=== PATIENT | male | born 1950 | race Caucasian/White ===

== ENCOUNTER 2016-08-25 15:19 | Outpatient (CLI) | payer BC, MEDICARE ==
[2016-08-25 16:47] LABS: ALT (SGPT) 15 U/L (0-55); AST (SGOT) 13 U/L (5-34); Alkaline Phosphatase 113 U/L (40-150); Anion Gap 17 mmol/L (10-20); BUN (Urea Nitrogen) 24 mg/dL (8.4-25.7); Bilirubin, Total 0.6 mg/dL (0.2-1.2); Calc. Creatinine Clearance 0 mL/min (70-130); Calcium 8.7 mg/dL (7.8-10.44); Carbon Dioxide 26 mmol/L (23-31); Chloride 98 mmol/L (98-107); Estimated GFR-MDRD 34; Globulin 3.2 g/dL (2.4-3.5); LDL Cholesterol, Calculated 83 mg/dL; Protein, Total 7.2 g/dL (5.8-8.1)
[2016-08-25 16:52] LABS: #Basophils 0.1 thou/uL (0.0-0.2); #Eosinphils 0.2 thou/uL (0.0-0.7); #Lymphocytes 2.3 thou/uL (1.20-3.40); #Monocytes 0.5 thou/uL (0.11-0.59); #Neutrophils 4.1 thou/uL (1.40-6.50); %Eosinophils 2.8 % (0.0-10.0); %Lymphocytes 32.7 % (21.0-51.0); %Monocytes 6.9 % (0.0-10.0); Hematocrit 33.5 % (42.0-52.0); Mean Platelet Volume 8.5 fL (7.4-10.4); Red Blood Cell (RBC) Count 3.65 mill/uL (4.70-6.10); White Blood Cell (WBC) Count 7.2 thou/uL (4.8-10.8)
[2016-08-25 17:03] LABS: Hemoglobin A1c 10.3 % (4.0-6.0)
[2016-08-25 22:06] LABS: Bilirubin Negative (Negative); Blood, Urine Negative (Negative); Glucose, Urine (Dipstick) >=1000 mg/dL (Negative); Ketone, Urine Negative (Negative); Nitrite Negative (Negative); Protein, Urine (Dipstick) Negative (Neg-Trace); Urobilinogen 0.2 mg/dL (0.2-1.0)
== END 2016-08-25 15:20 ==
LOC: NAVSJIPCSP 15:19
PROVIDERS: ATTEND Internal Medicine
DX: Z12.5 Encounter for screening for malignant neoplasm of prostate (principal); E78.5 Hyperlipidemia, unspecified; E11.22 Type 2 diabetes mellitus with diabetic chronic kidney disease; I12.9 Hypertensive chronic kidney disease with stage 1 through stage 4 chronic kidney disease, or unspecified chronic kidney disease; N18.2 Chronic kidney disease, stage 2 (mild); Z79.899 Other long term (current) drug therapy
CPT/HCPCS: 80053; 80061; 81003; 82043; 83036; 85025; G0103

== ENCOUNTER 2017-01-23 09:48 | Outpatient (CLI) | payer MEDICARE, OTHER ==
[2017-01-23 12:45] LABS: Hemoglobin A1c 11.8 % (4.0-6.0)
[2017-01-23 14:11] LABS: Cardiac Risk 6.1 (Less than 4.5)
== END 2017-01-23 09:49 | disposition home or self-care (01) ==
LOC: NAVSJIPCSP 09:48
PROVIDERS: ATTEND Internal Medicine
DX: E78.5 Hyperlipidemia, unspecified (principal); E11.29 Type 2 diabetes mellitus with other diabetic kidney complication
CPT/HCPCS: 36415; 80061; 83036

== ENCOUNTER 2018-05-31 18:52 | Emergency (ER) | payer OTHER ==
[2018-05-31 19:48] LABS: #Basophils 0.1 thou/uL (0.0-0.2); #Eosinphils 0.1 thou/uL (0.0-0.7); #Lymphocytes 2.2 thou/uL (1.20-3.40); #Monocytes 0.7 thou/uL (0.11-0.59); #Neutrophils 6.2 thou/uL (1.40-6.50); %Eosinophils 1.2 % (0.0-10.0); %Lymphocytes 23.4 % (21.0-51.0); %Monocytes 7.9 % (0.0-10.0); %Neutrophils 66.5 % (42.0-75.0); Hemoglobin 11.1 g/dL (14.0-18.0); Mean Corpuscular HGB CONC 32.9 g/dL (32.0-36.0); Mean Corpuscular Hemoglobin 30.6 pg (27.0-31.0); Mean Platelet Volume 7.9 fL (7.4-10.4); Platelet Count 219 thou/uL (130-400); RBC Distribution Width 12.5 % (11.5-14.5); Red Blood Cell (RBC) Count 3.61 mill/uL (4.70-6.10); White Blood Cell (WBC) Count 9.3 thou/uL (4.8-10.8)
[2018-05-31 19:53] LABS: ALT (SGPT) 17 U/L (8-55); AST (SGOT) 17 U/L (5-34); Albumin 4.2 g/dL (3.4-4.8); Alkaline Phosphatase 92 U/L (40-150); Anion Gap 17 mmol/L (10-20); BUN (Urea Nitrogen) 33 mg/dL (8.4-25.7); Bilirubin, Total 0.8 mg/dL (0.2-1.2); CK (CPK) 188 U/L (30-200); Calc. Creatinine Clearance 0 mL/min (70-130); Calcium 9.3 mg/dL (7.8-10.44); Carbon Dioxide 24 mmol/L (23-31); Chloride 109 mmol/L (98-107); Estimated GFR-MDRD 45; Globulin 2.8 g/dL (2.4-3.5); Glucose 249 mg/dL (80-115); Potassium 4.6 mmol/L (3.5-5.1); Sodium 145 mmol/L (136-145)
[2018-05-31 19:55] LABS: Bilirubin Small (Negative); Blood, Urine Trace (Negative); Glucose, Urine (Dipstick) 500 mg/dL (Negative); Leukocyte Negative (Negative); Nitrite Negative (Negative); Protein, Urine (Dipstick) 100 mg/dL (Neg-Trace); pH, Urine 5.5 (5.0-9.0)
[2018-05-31 20:00] LABS: Clarity SL HAZY (Clear)
[2018-05-31 20:02] LABS: RBC/HPF 0-3 HPF (0-3); Squamous Epithelial 0-3 HPF (0-3); WBC/HPF 0-3 HPF (0-3)
--- NOTE | 2018-05-31 21:01 | CT ---
CT BRAIN NONCONTRAST: 05/31/18 at 8:19 p.m. HISTORY: Syncope in 68-year-old male. FINDINGS: There is no midline shift or any other mass effect. There is no evidence of acute intracranial hemor rhage, large cortical infarct, obstructive hydrocephalus, or extraaxial fluid collection. The calvar ium is intact. There is diffuse chronic brain parenchymal volume loss. There is no major interval maribell nge compared to 07/23/15, except for mild progression of the parenchymal volume loss. IMPRESSION: 1. No acute intracranial findings. 2. Diffuse involutional changes of the brain. jn [] POS: JIN
== END 2018-05-31 23:16 | disposition short-term general hospital (02) ==
LOC: NAV ERS 18:52
DX: R41.82 Altered mental status, unspecified (principal); K21.9 Gastro-esophageal reflux disease without esophagitis; E11.9 Type 2 diabetes mellitus without complications; E78.00 Pure hypercholesterolemia, unspecified; I10 Essential (primary) hypertension; Z79.899 Other long term (current) drug therapy; Z79.82 Long term (current) use of aspirin
CPT/HCPCS: 36416; 70450; 80053; 81003; 81015; 82140; 82550; 84443; 84484; 85025; 93005; 36415-59

== ENCOUNTER 2018-07-04 06:58 | Outpatient (CLI) | payer BC, MEDICARE ==
--- NOTE | 2018-07-04 10:33 | ULT ---
RENAL ULTRASOUND: INDICATIONS: History of chronic renal disease. COMPARISON: None. TECHNIQUE: Zuniga-scale and color Doppler images were obtained of the kidneys and bladder. FINDINGS: The right kidney measures 12.7 x 5.4 x 6.0 cm. The right renal cortical thickness is 1.4 cm. No hyd ronephrosis is evident. No solid renal lesion is demonstrated. The left kidney measures 12.5 x 5.6 x 4.8 cm. The left renal cortical thickness is, on average, appr oximately 1.4 to 1.7 cm. No focal renal lesion or hydronephrosis is evident. The visualized bladder appears within normal limits and is partially decompressed. Pre-void bladder volume is measured at 53 mL. IMPRESSION: No focal renal lesion or hydronephrosis. POS: DENISE
[2018-07-04 12:12] LABS: Anion Gap 16 mmol/L (10-20); BUN (Urea Nitrogen) 28 mg/dL (8.4-25.7); Calc. Creatinine Clearance 0 mL/min (70-130); Calcium 8.7 mg/dL (7.8-10.44); Carbon Dioxide 24 mmol/L (23-31); Chloride 99 mmol/L (98-107); Estimated GFR-MDRD 32; Glucose 372 mg/dL (80-115); Potassium 5.7 mmol/L (3.5-5.1); Sodium 133 mmol/L (136-145)
[2018-07-04 12:31] LABS: Creatinine, Urine 62.68 mg/dL (63-166); Protein, Urine Random Quant Less than 10 mg/dL (1-14)
[2018-07-04 13:01] LABS: Follow-up Chemistry Comp? YES; Follow-up Result - Chemistry REPORT FAXED
== END 2018-07-04 06:59 | disposition home or self-care (01) ==
LOC: NAV ULT 06:58
PROVIDERS: ATTEND Internal Medicine Nephrology
DX: N18.3 Chronic kidney disease, stage 3 (moderate) (principal)
CPT/HCPCS: 36415; 76770; 80048; 82570; 84156

== ENCOUNTER 2020-07-25 11:54 | Inpatient (IN) | payer BC, MEDICARE ==
[2020-07-25 12:48] LABS: #Basophils 0.1 thou/uL (0.0-0.2); #Lymphocytes 2.5 thou/uL (1.20-3.40); #Monocytes 0.5 thou/uL (0.11-0.59); #Neutrophils 7.2 thou/uL (1.40-6.50); %Basophils 0.6 % (0.0-1.0); %Eosinophils 0.2 % (0.0-10.0); %Monocytes 5.2 % (0.0-10.0); %Neutrophils 70.1 % (42.0-75.0); Hemoglobin 12.5 g/dL (14.0-18.0); Mean Corpuscular HGB CONC 31.7 g/dL (32.0-36.0); Mean Corpuscular Volume 94.6 fL (78.0-98.0); Mean Platelet Volume 7.9 fL (7.4-10.4); Platelet Count 166 thou/uL (130-400); RBC Distribution Width 13.1 % (11.5-14.5); Red Blood Cell (RBC) Count 4.17 mill/uL (4.70-6.10); White Blood Cell (WBC) Count 10.2 thou/uL (4.8-10.8)
[2020-07-25 12:52] LABS: ALT (SGPT) 18 U/L (8-55); AST (SGOT) 18 U/L (5-34); Albumin 4.3 g/dL (3.4-4.8); Alcohol Less than 10 mg/dL (Less than 10); Alkaline Phosphatase 109 U/L (40-110); Anion Gap 20 mmol/L (10-20); BUN (Urea Nitrogen) 38 mg/dL (8.4-25.7); Bilirubin, Total 0.9 mg/dL (0.2-1.2); Calc. Creatinine Clearance 0 mL/min (70-130); Calcium 9.2 mg/dL (7.8-10.44); Carbon Dioxide 22 mmol/L (23-31); Chloride 103 mmol/L (98-107); Globulin 3.3 g/dL (2.4-3.5); Glucose 235 mg/dL (83-110); Potassium 4.6 mmol/L (3.5-5.1); Protein, Total 7.6 g/dL (5.8-8.1)
--- NOTE | 2020-07-25 12:56 | CT ---
EXAM: Brain CTWithout contrast: HISTORY: Altered mental status COMPARISON: 05/31/2018 FINDINGS: Stable atrophy and chronic white matter ischemic change. No focal mass or midline shift. No intra or extra-axial hemorrhage. Sinuses and mastoids are clear of acute process. IMPRESSION: No mass or bleed or other significant acute intracranial process.
--- NOTE | 2020-07-25 12:59 | RAD ---
EXAM: Chest one view: HISTORY: Altered mental status COMPARISON: 08/27/2016 FINDINGS: Postop midline sternotomy and coronary artery bypass changes, stable Heart size: Within normal limits. Lungs: Clear of acute process. No evidence for confluent lobar pneumonia, significant pleural effusion, acute edema, or pneumothorax , or other significant acute process. IMPRESSION: No significant acute intrathoracic disease.
[2020-07-25 13:04] LABS: Lipase 15 U/L (8-78); Sodium 140 mmol/L (136-145)
[2020-07-25 13:08] LABS: Bilirubin Small (Negative); Blood, Urine Negative (Negative); Clarity Clear (Clear); Glucose, Urine (Dipstick) 100 mg/dL (Negative); Ketone, Urine 15 mg/dL (Negative); Leukocyte Negative (Negative); Nitrite Negative (Negative); Protein, Urine (Dipstick) Negative (Neg-Trace); Specific Gravity, Urine 1.025 (1.005-1.030); Urobilinogen 0.2 mg/dL (Less than 2)
[2020-07-25 13:21] LABS: Amphetamine Not Detected (NotDetected); Benzodiazepine Screen Not Detected (NotDetected); Cocaine Metabolite Screen Not Detected (NotDetected); Methamphetamine Not Detected (NotDetected); Opiate Screen Not Detected (NotDetected); Phencyclidine (PCP) Not Detected (NotDetected); THC/Cannabinoid Screen Not Detected (NotDetected)
[2020-07-25 13:22] LABS: Barbiturates Screen Not Detected (NotDetected); Medtox Control Line Valid? VALID (VALID); Methadone Not Detected (NotDetected); Oxycodone Screen Not Detected (NotDetected); Tricyclic Screen Not Detected (NotDetected)
[2020-07-25] MEDS ORDERED: Sodium Chloride 0.9% 2,000 ML ONE (13:36)
[2020-07-25] MEDS ORDERED: Cefepime 2 GM VIAL ONE (13:36)
[2020-07-25] MEDS ORDERED: Sodium Chloride 0.9% 100 ML ONE (13:36)
[2020-07-25] MEDS ORDERED: Sodium Chloride 0.9% 500 ML ONE (14:10)
[2020-07-25 14:49] LABS: SARS-CoV-2 NAA Rapid Test Not Detected (NotDetected)
[2020-07-25] MEDS ORDERED: Glimepiride 2 MG TAB PO SCH (16:30)
[2020-07-25] MEDS ORDERED: Insulin Regular 300 UNITS/3 ML VIAL SC PRN (17:59)
[2020-07-25] MEDS ORDERED: Dextrose 50% Abboject 50 ML SYRINGE SLOW IVP PRN (17:59)
[2020-07-25] MEDS: Sodium Chloride 0.9% 1,000 ML IV SCH (18:10)
[2020-07-25] MEDS ORDERED: Metoprolol Tartrate 25 MG TAB PO SCH ×2 (21:00)
[2020-07-25] MEDS ORDERED: HumuLIN 70/30 (300 UNITS/3 ML VIAL) SC SCH (21:00)
[2020-07-25] MEDS: Cefepime 2 GM in Sodium Chloride 0.9% 100 ML IVPB SCH (21:00)
[2020-07-25] MEDS ORDERED: Atorvastatin Calcium 40 MG TAB PO SCH ×2 (21:00)
[2020-07-26 05:15] LABS: #Basophils 0.1 thou/uL (0.0-0.2); #Eosinphils 0.1 thou/uL (0.0-0.7); #Lymphocytes 2.9 thou/uL (1.20-3.40); #Monocytes 0.8 thou/uL (0.11-0.59); #Neutrophils 5.3 thou/uL (1.40-6.50); %Basophils 0.8 % (0.0-1.0); %Eosinophils 1.2 % (0.0-10.0); %Lymphocytes 31.4 % (21.0-51.0); %Monocytes 9.1 % (0.0-10.0); %Neutrophils 57.4 % (42.0-75.0); Hemoglobin 10.8 g/dL (14.0-18.0); Manual Diff?? NO; Mean Corpuscular HGB CONC 33.6 g/dL (32.0-36.0); Mean Corpuscular Hemoglobin 30.9 pg (27.0-31.0); Mean Corpuscular Volume 91.9 fL (78.0-98.0); Mean Platelet Volume 8.2 fL (7.4-10.4); Platelet Count 161 thou/uL (130-400); RBC Distribution Width 12.9 % (11.5-14.5); White Blood Cell (WBC) Count 9.2 thou/uL (4.8-10.8)
[2020-07-26 05:16] LABS: Lactic Acid 1.2 mmol/L (0.5-2.2)
[2020-07-26] MEDS: Cefepime 2 GM in Sodium Chloride 0.9% 100 ML IVPB SCH ×3 (05:19→21:16)
[2020-07-26 05:23] LABS: ALT (SGPT) 14 U/L (8-55); AST (SGOT) 18 U/L (5-34); Albumin 3.6 g/dL (3.4-4.8); Alkaline Phosphatase 83 U/L (40-110); Anion Gap 14 mmol/L (10-20); BUN (Urea Nitrogen) 27 mg/dL (8.4-25.7); Bilirubin, Total 0.7 mg/dL (0.2-1.2); Calc. Creatinine Clearance 67 mL/min (70-130); Calcium 8.2 mg/dL (7.8-10.44); Carbon Dioxide 21 mmol/L (23-31); Chloride 109 mmol/L (98-107); Globulin 2.5 g/dL (2.4-3.5); Glucose 82 mg/dL (83-110); Potassium 4.1 mmol/L (3.5-5.1); Protein, Total 6.1 g/dL (5.8-8.1); Sodium 140 mmol/L (136-145)
[2020-07-26] MEDS ORDERED: Glimepiride 2 MG TAB PO SCH (07:30)
[2020-07-26] MEDS ORDERED: Spironolactone 25 MG TAB PO SCH (08:00)
--- NOTE | 2020-07-26 08:12 | HP ---
Patient of Dr. Jessica Lyons. HISTORY OF PRESENT ILLNESS: The patient is a 70-year-old male, brought into the emergency room by his because of altered mental status and weakness. Apparently, he has a history of diabetes and hypertension, but had do well until the last several days when he has become very weak and also has been slightly confused, not answering the 's questions appropriately. He was evaluated in the emergency room and found to be dehydrated with decreased GFR and elevated BUN. He was also found to have a slightly elevated lactate. His urinalysis was normal as was his chest x-ray, but because of his metabolic encephalopathy, elevated lactate, and risk factors of diabetes and hypertension, it is felt to be admitted to the hospital for sepsis workup. He had blood cultures done and was started on broad-spectrum coverage with vancomycin and cefepime. The patient does appear to be improving somewhat, somewhat described in the emergency room, but is still somewhat weak and confused here in the hospital. He denies any fever, chills, shortness of breath, cough, nausea, vomiting, diarrhea, or dysuria. He, however, is eating in the hospital. PAST MEDICAL HISTORY: As mentioned above, is positive for diabetes, hyperlipidemia, and hypertension. Medical history also was positive for coronary artery disease. PAST SURGICAL HISTORY: Positive for appendectomy, tonsillectomy, adenoidectomy, coronary artery bypass graft. REVIEW OF SYSTEMS: HEENT: He denies any headaches, dizziness, change in vision or hearing. Complains of just diffuse weakness. PULMONARY: Denies cough, sputum production, pneumonia, asthma, or tuberculosis. CARDIOVASCULAR: Denies chest pain, orthopnea, paroxysmal nocturnal dyspnea, or edema. GASTROINTESTINAL: Denies nausea, vomiting, diarrhea, constipation, or abdominal pain. GENITOURINARY: Denies dysuria, hematuria, or nocturia. MUSCULOSKELETAL: Complains of diffuse weakness, but no back pain or joint pain. NEUROLOGIC: Denies localized numbness or tingling in the arms or extremities, but diffuse weakness. PHYSICAL EXAMINATION: VITAL SIGNS: Blood pressure 169/73, pulse is 80, respirations 15, O2 saturation 97% on room air. He is afebrile. HEENT: Pupils are equal, round, and reactive to light and accommodation. Sclerae anicteric. Conjunctivae pale. Oral mucous membranes well hydrated. NECK: Supple. There are no nodes or masses. JVP is not elevated. LUNGS: Clear. CARDIAC: Shows regular rhythm. No gallops or murmurs. ABDOMEN: Soft and nontender with no masses or organomegaly. SKIN/EXTREMITIES: Display no edema, clubbing, or cyanosis. NEUROLOGIC: Cranial nerves 2 through 12 are intact. Deep tendon reflex 2+ and equal. Absent Babinski. The patient, however, is only oriented to person and place. LABORATORY EVALUATIONS: EKG shows normal sinus rhythm, no ST changes. Laboratory shows white count 10,200, hematocrit 39, hemoglobin 12. Sodium 140, potassium 4.6, chloride 103, bicarb 22, BUN 38, creatinine 1.97, glucose 235. Lactic acid 2.3. TSH 0.925. Liver functions normal. Troponin less than 0.01. Urinalysis within normal limits. Drug screen normal. COVID, influenza swab normal. ASSESSMENT: A 70-year-old white male history of hypertension, diabetes, coronary artery disease, presents with mild confusion, altered mental status and weakness. He is found to have dehydration with increased creatinine and also with increased lactic acid. There is no source of infection, but he has been admitted to the hospital after blood cultures for IV fluids and broad-spectrum antibiotics, pending results of his cultures and his mental status and his renal status after IV fluids. PLAN: 1. IV vancomycin and cefepime. 2. Normal saline 75 mL an hour. 3. Repeat CBC and basic metabolic profile in the a.m. 4. Await blood cultures. 5. Continue sliding scale until the patient is able to eat better and then started back on prehospitalization medications. Job ID: [id number]
[2020-07-26] MEDS: Spironolactone 25 MG TAB PO SCH (08:35)
[2020-07-26] MEDS: Sodium Chloride 0.9% 1,000 ML IV SCH ×2 (08:35→21:17)
[2020-07-26] MEDS ORDERED: HumuLIN 70/30 (300 UNITS/3 ML VIAL) SC SCH (09:00)
[2020-07-26] MEDS ORDERED: Furosemide 40 MG TAB PO SCH (09:00)
[2020-07-26] MEDS ORDERED: Vancomycin HCl 750 MG in Sodium Chloride 0.9% 250 ML 250 ML IVPB SCH ×2 (14:00→16:00)
[2020-07-26] MEDS ORDERED: Vancomycin HCl 500 MG in Sodium Chloride 0.9% 100 ML IVPB SCH ×2 (15:00→17:00)
[2020-07-27 04:57] VITALS: BMI 33.0
[2020-07-27] MEDS: Cefepime 2 GM in Sodium Chloride 0.9% 100 ML IVPB SCH (05:05)
[2020-07-27] MEDS: Spironolactone 25 MG TAB PO SCH (09:58)
[2020-07-27] MEDS ORDERED: Ondansetron PF 4 MG/2 ML Vial IVP PRN (11:57)
--- NOTE | 2020-07-27 13:26 | PRG ---
DATE OF SERVICE: 07/27/2020 SUBJECTIVE: Mr. Arteaga is up in bed. He denies any complaints. He is confused and not oriented to time or place. He states that he recognizes me as his doctor, but does not remember my name. He is apparently eating and drinking more. No signs of infection. OBJECTIVE: VITAL SIGNS: He is afebrile. Heart rate 69, respirations 16, oxygen saturation 98% on room air, blood pressure 172/76. CARDIOVASCULAR SYSTEM: S1, S2 plus. RESPIRATORY SYSTEM: Normal vesicular breath sounds. ABDOMEN: Soft, nontender. Bowel sounds heard in all quadrants. EXTREMITIES: Without cyanosis, clubbing. Trace edema. CENTRAL NERVOUS SYSTEM: Awake and responsive, not oriented to time. He thinks this is 2004 and unable to remember my name. Cranial nerves 2 through 12 intact. Generalized weakness, otherwise, nonfocal. LABORATORY DATA: Sodium 140, potassium 4.1, BUN and creatinine is 27 and 1.4 this is from yesterday. No labs were done today and I ordered some labs. Blood sugars are 131, 126, 88 and 115. Lactic acid was normal yesterday at 1.2. White count is 9.2, hemoglobin and hematocrit are 10.8 and 32.2. Urinalysis was unremarkable. Tox screen was negative. SARS-CoV2 and influenza were negative. IMAGING STUDIES: Brain CT without contrast does not show any acute changes. IMPRESSION: 1. Altered mental status. 2. Dehydration, possibly improving. 3. Diabetes mellitus type 2. 4. Hypertension. 5. Dyslipidemia. 6. Coronary artery disease. PLAN: 1. Continue current medications but discontinue IV antibiotics. 2. Continue IV fluids. 3. Resume home medications, but hold his long-acting insulin. I am not sure how much he is eating. 4. Continue sliding scale coverage. 5. I left his a call to find out what might have happened at home. He may need to get an MRI and neurological workup as outpatient for possible presenile dementia. We will order a TSH and B12 level while he is here. We will also get him out of bed. Routine labs in the morning. Discussed with the patient and nursing. Job ID: [id number]
[2020-07-27] MEDS: Sodium Chloride 0.9% 1,000 ML IV SCH (14:46)
[2020-07-27] MEDS: Glimepiride 2 MG TAB PO SCH (17:28)
[2020-07-27] MEDS ORDERED: HumuLIN 70/30 (300 UNITS/3 ML VIAL) SC SCH (21:00)
[2020-07-27] MEDS: Metoprolol Tartrate 25 MG TAB PO SCH (21:03)
[2020-07-27] MEDS: Atorvastatin Calcium 40 MG TAB PO SCH (21:03)
[2020-07-28] MEDS: Sodium Chloride 0.9% 1,000 ML IV SCH ×2 (01:50→14:23)
[2020-07-28 05:31] LABS: Hemoglobin 11.6 g/dL (14.0-18.0); Mean Corpuscular Volume 92.5 fL (78.0-98.0); Red Blood Cell (RBC) Count 3.84 mill/uL (4.70-6.10); White Blood Cell (WBC) Count 8.9 thou/uL (4.8-10.8)
[2020-07-28 05:32] LABS: #Basophils 0.1 thou/uL (0.0-0.2); #Eosinphils 0.2 thou/uL (0.0-0.7); #Lymphocytes 2.5 thou/uL (1.20-3.40); #Monocytes 0.8 thou/uL (0.11-0.59); #Neutrophils 5.3 thou/uL (1.40-6.50); %Basophils 1.2 % (0.0-1.0); %Eosinophils 2.3 % (0.0-10.0); %Lymphocytes 28.6 % (21.0-51.0); %Monocytes 8.5 % (0.0-10.0); %Neutrophils 59.5 % (42.0-75.0); Manual Diff?? NO; Mean Corpuscular HGB CONC 32.6 g/dL (32.0-36.0); Mean Corpuscular Hemoglobin 30.2 pg (27.0-31.0); Mean Platelet Volume 7.5 fL (7.4-10.4); Platelet Count 160 thou/uL (130-400); RBC Distribution Width 12.8 % (11.5-14.5)
[2020-07-28 05:38] LABS: Sodium 140 mmol/L (136-145)
[2020-07-28 05:39] LABS: Anion Gap 13 mmol/L (10-20); BUN (Urea Nitrogen) 20 mg/dL (8.4-25.7); Calc. Creatinine Clearance 85 mL/min (70-130); Calcium 8.3 mg/dL (7.8-10.44); Carbon Dioxide 21 mmol/L (23-31); Chloride 110 mmol/L (98-107); Glucose 78 mg/dL (83-110); Potassium 3.8 mmol/L (3.5-5.1)
[2020-07-28] MEDS: Glimepiride 2 MG TAB PO SCH ×2 (08:17→17:36)
[2020-07-28] MEDS: Metoprolol Tartrate 25 MG TAB PO SCH ×2 (08:19→21:33)
[2020-07-28] MEDS: Spironolactone 25 MG TAB PO SCH (08:19)
[2020-07-28] MEDS ORDERED: Furosemide 40 MG TAB PO SCH (09:00)
[2020-07-28] MEDS ORDERED: HumuLIN 70/30 (300 UNITS/3 ML VIAL) SC SCH (09:00)
--- NOTE | 2020-07-28 13:24 | PRG ---
DATE OF SERVICE: 07/28/2020 SUBJECTIVE: Mr. Arteaga is much more awake and alert. He is back to his baseline. He is able to recognize me by name. He is also oriented to time, place, and person. He was evaluated by Therapy this morning and he apparently was taken to the gym. He apparently also walked outside as well as did some stairs. We will check with them and see when he will be ready for discharge. OBJECTIVE: VITAL SIGNS: Today, he is afebrile, heart rate is 69, respirations 16, oxygen saturation 96% on room air, and blood pressure 150/72. CARDIOVASCULAR SYSTEM: S1 and S2 plus. RESPIRATORY SYSTEM: Normal vesicular breath sounds. ABDOMEN: Soft and nontender. Bowel sounds heard in all quadrants. EXTREMITIES: Without cyanosis or clubbing. CENTRAL NERVOUS SYSTEM: Much improved cognition, back to his baseline, and improving deconditioning. LABORATORY VALUES: Sodium 140, potassium 3.8, and BUN and creatinine are 20 and 1.10. Blood sugars are 121, 110, 93, and 137. B12 was slightly low at 271. TSH was normal at 1.0805. B12 was low normal. White count is 8.9 and hemoglobin and hematocrit are 11.6 and 35.5. IMPRESSION: 1. Resolved altered mental status. 2. No evidence for infection. 3. Resolved dehydration. 4. Coronary artery disease. 5. Diabetes mellitus, type 2. 6. Hypertension. 7. Dyslipidemia. 8. Chronic kidney disease, 2. PLAN: 1. Stop IV fluids. 2. 1800-calorie, heart healthy, ADA diet. 3. Continue to hold off on his 70/30 insulin. 4. PT/OT evaluate and treat. 5. Discharge planning. 6. Discussed with the patient and nursing in detail and all questions answered. I also spoke with his over the phone. Job ID: [id number]
[2020-07-28] MEDS: Atorvastatin Calcium 40 MG TAB PO SCH (21:33)
[2020-07-29] MEDS: Spironolactone 25 MG TAB PO SCH (08:24)
[2020-07-29] MEDS: Metoprolol Tartrate 25 MG TAB PO SCH (08:24)
[2020-07-29] MEDS: Glimepiride 2 MG TAB PO SCH (08:24)
[2020-07-29 09:25] VITALS: TEMP 98.1
[2020-07-29 13:00] VITALS: BP 148/79
--- NOTE | 2020-07-30 00:16 | DIS ---
DATE OF ADMISSION: 07/25/2020 DATE OF DISCHARGE: 07/29/2020 PRINCIPAL DIAGNOSES: 1. Altered mental status, which resolved. 2. Dehydration, which has resolved. 3. Diabetes mellitus type 2. 4. Hypertension. 5. Dyslipidemia. 6. Coronary artery disease. 7. Diabetic peripheral neuropathy. COMPLICATIONS: None. ADVERSE REACTIONS: None. PROCEDURES: None. CONSULTATIONS: None. HOSPITAL COURSE: The patient was admitted with altered mental status and weakness. He apparently was somnolent and not eating or drinking well. He was evaluated in the ER and was diagnosed with mildly elevated lactic acid level and elevated creatinine, and was felt to be septic. He was admitted to the hospital for further evaluation and management. He was started on IV fluids and empiric IV antibiotics with vancomycin and cefepime. When I saw him the next day, his cultures remain negative. White count was normal. No evidence for any infection. Lactic acid level was back to normal, and so I stopped all his antibiotics. I did continue his IV fluids. He did remain confused. The day after, he was pretty much back to his baseline. He was able to recognize me, was oriented to time, place, and person, and so I consulted Physical Therapy and had some work with them. Discontinued his IV fluids as well. He actually has been pretty much independent while in the hospital since yesterday. He has been ambulating without any certified dental assistant. He is eating better and he was deemed stable for discharge to home. He is going to be discharged home on his current medications except I told his to cut his 70/30 insulin dose in half tonight and then slowly increase it to his usual dosage as he has been off the insulin for the last few days. He also apparently is on pregabalin at home, which he has not picked up and I advised his that it is okay for him to resume his pregabalin. PHYSICAL EXAMINATION: VITAL SIGNS: On the day of discharge, he is afebrile. Heart rate 68, respirations 18, oxygen saturation 96% on room air, blood pressure 157/67. CARDIOVASCULAR SYSTEM: S1, S2 plus. RESPIRATORY SYSTEM: Normal vesicular breath sounds. ABDOMEN: Soft, nontender. Bowel sounds heard in all quadrants. EXTREMITIES: Without cyanosis or clubbing. CENTRAL NERVOUS SYSTEM: Awake and responsive. Cranial nerves 2 through 12 intact. Generalized weakness. Otherwise, nonfocal. DISCHARGE MEDICATIONS: 1. Lipitor 80 mg daily. 2. Amaryl 4 mg b.i.d. 3. Aldactone 25 mg daily. 4. Lasix 40 mg daily. 5. 70/30 insulin, start out at 15 units twice a day and then slowly increase it by 5 units every three days to his baseline dose of 25 units in the morning and 30 in the evening. 6. Metoprolol 25 mg b.i.d. 7. Prilosec 40 mg daily. DISCHARGE INSTRUCTIONS: 1800 calorie heart-healthy ADA diet. Activity as tolerated. He is to follow up in my office in two weeks time. He is to call us with any questions or concerns. He does not need any refills. TIME SPENT: Total time spent on this discharge 25 minutes. Job ID: [id number]
== END 2020-07-29 14:20 | disposition home or self-care (01) | DRG 948 ==
LOC: NAV ERS 11:54 → NAV ACUTE 15:01
PROVIDERS: ADMIT Internal Medicine; ATTEND Internal Medicine
DX: R41.82 Altered mental status, unspecified (principal); E78.5 Hyperlipidemia, unspecified; E86.0 Dehydration; I25.10 Atherosclerotic heart disease of native coronary artery without angina pectoris; Z20.822 Contact with and (suspected) exposure to COVID-19; N18.2 Chronic kidney disease, stage 2 (mild); E11.22 Type 2 diabetes mellitus with diabetic chronic kidney disease; E11.42 Type 2 diabetes mellitus with diabetic polyneuropathy; I12.9 Hypertensive chronic kidney disease with stage 1 through stage 4 chronic kidney disease, or unspecified chronic kidney disease; Z90.49 Acquired absence of other specified parts of digestive tract; Z95.1 Presence of aortocoronary bypass graft
CPT/HCPCS: 0240U; 36416; 70450; 71045; 80048; 80053; 80306; 80307; 81003; 82607; 83605; 83690; 84443; 84484; 85025; 87040; 93005; J0692; J3370; J3490; J7030; J7050

== ENCOUNTER 2020-12-08 21:43 | Emergency (ER) | payer BC, MEDICARE ==
[2020-12-08] MEDS ORDERED: Acetaminophen 500 MG TAB ONE (21:54)
[2020-12-08] MEDS ORDERED: Ibuprofen 200 MG TAB ONE (22:24)
[2020-12-08 22:52] LABS: ALT (SGPT) 15 U/L (8-55); AST (SGOT) 15 U/L (5-34); Albumin 3.9 g/dL (3.4-4.8); Alkaline Phosphatase 96 U/L (40-110); Anion Gap 18 mmol/L (10-20); BUN (Urea Nitrogen) 28 mg/dL (8.4-25.7); Bilirubin, Total 0.7 mg/dL (0.2-1.2); Calc. Creatinine Clearance 0 mL/min (70-130); Carbon Dioxide 17 mmol/L (23-31); Chloride 105 mmol/L (98-107); Globulin 2.9 g/dL (2.4-3.5); Glucose 153 mg/dL (83-110); Potassium 5.5 mmol/L (3.5-5.1); Protein, Total 6.8 g/dL (5.8-8.1); Sodium 134 mmol/L (136-145)
[2020-12-08 22:58] LABS: Hemoglobin 11.6 g/dL (14.0-18.0); Mean Corpuscular Hemoglobin 30.1 pg (27.0-31.0); Platelet Count 53 thou/uL (130-400); Red Blood Cell (RBC) Count 3.85 mill/uL (4.70-6.10); White Blood Cell (WBC) Count 13.9 thou/uL (4.8-10.8)
[2020-12-08 23:02] LABS: #Basophils 0.2 thou/uL (0.0-0.2); #Eosinphils 0.1 thou/uL (0.0-0.7); #Lymphocytes 1.3 thou/uL (1.20-3.40); #Monocytes 0.8 thou/uL (0.11-0.59); #Neutrophils 11.6 thou/uL (1.40-6.50); %Basophils 1.3 % (0.0-1.0); %Eosinophils 0.4 % (0.0-10.0); %Lymphocytes 9.4 % (21.0-51.0); %Monocytes 5.4 % (0.0-10.0); %Neutrophils 83.5 % (42.0-75.0); Anisocytosis SLIGHT = 6-15 cells (100X) (0-5/hpf); MDiff Complete? YES; Ovalocytes SLIGHT = 2-5 cells (100X) (0-1/hpf); Platelet Morphology Comment Appears Decreased
[2020-12-08 23:49] LABS: SARS-CoV-2 NAA Rapid Test Not Detected (NotDetected)
[2020-12-09 00:01] LABS: Bilirubin Negative (Negative); Blood, Urine Negative (Negative); Clarity Clear (Clear); Glucose, Urine (Dipstick) Negative (Negative); Ketone, Urine Negative (Negative); Leukocyte Negative (Negative); Nitrite Negative (Negative); Protein, Urine (Dipstick) Negative (Neg-Trace); Urobilinogen 0.2 mg/dL (Less than 2); pH, Urine 5.5 (5.0-9.0)
== END 2020-12-09 00:55 | disposition home or self-care (01) ==
LOC: NAV ERS 21:43
DX: B34.9 Viral infection, unspecified (principal); Z20.822 Contact with and (suspected) exposure to COVID-19; E11.9 Type 2 diabetes mellitus without complications; E78.00 Pure hypercholesterolemia, unspecified; I10 Essential (primary) hypertension; Z79.84 Long term (current) use of oral hypoglycemic drugs; Z79.899 Other long term (current) drug therapy
CPT/HCPCS: 0240U; 71046; 74176; 80053; 81003; 85025

== ENCOUNTER 2021-11-10 09:51 | Outpatient (CLI) | payer BC, OTHER ==
[2021-11-10 10:45] LABS: Anion Gap 19 mmol/L (10-20); BUN (Urea Nitrogen) 33 mg/dL (8.4-25.7); Calc. Creatinine Clearance 0 mL/min (70-130); Calcium 9.3 mg/dL (7.8-10.44); Carbon Dioxide 20 mmol/L (23-31); Chloride 102 mmol/L (98-107); Glucose 274 mg/dL (83-110); Potassium 5.9 mmol/L (3.5-5.1); Sodium 135 mmol/L (136-145)
== END 2021-11-10 09:52 | disposition home or self-care (01) ==
LOC: NAV LAB 09:51
PROVIDERS: ATTEND Family Medicine
DX: E87.5 Hyperkalemia (principal)
CPT/HCPCS: 36415

== ENCOUNTER 2022-05-30 22:00 | Emergency (ER) | payer OTHER ==
[~2022-05-30 22:00] MED LIST: Lantus 1000 UNITS/10 ML VIAL ONE
[2022-05-30] MEDS ORDERED: Acetaminophen 650 MG Suppository ONE (22:30)
[2022-05-30] MEDS ORDERED: Sodium Chloride 0.9% 1,000 ML ONE (22:30)
[2022-05-30] MEDS ORDERED: Ondansetron PF 4 MG/2 ML Vial ONE (22:30)
[2022-05-30 22:34] LABS: #Basophils 0.1 thou/uL (0.0-0.2); #Lymphocytes 2.1 thou/uL (1.20-3.40); #Monocytes 0.5 thou/uL (0.11-0.59); #Neutrophils 11.7 thou/uL (1.40-6.50); %Basophils 0.4 % (0.0-1.0); %Eosinophils 0.1 % (0.0-10.0); %Lymphocytes 14.7 % (21.0-51.0); %Monocytes 3.5 % (0.0-10.0); %Neutrophils 81.2 % (42.0-75.0); Hemoglobin 11.8 g/dL (14.0-18.0); Mean Platelet Volume 8.2 fL (7.4-10.4); Platelet Count 169 10x3/uL (130-400); RBC Distribution Width 14.3 % (11.5-14.5); Red Blood Cell (RBC) Count 3.81 mill/uL (4.70-6.10); White Blood Cell (WBC) Count 14.4 10x3/uL (4.8-10.8)
[2022-05-30] MEDS ORDERED: Cefepime 2 GM VIAL ONE ×2 (22:47→22:49)
[2022-05-30] MEDS ORDERED: Sodium Chloride 0.9% 100 ML ONE (22:47)
[2022-05-30 22:49] LABS: ALT (SGPT) 23 U/L (8-55); AST (SGOT) 20 U/L (5-34); Albumin 3.9 g/dL (3.4-4.8); Alkaline Phosphatase 93 U/L (40-110); Anion Gap 14 mmol/L (10-20); BUN (Urea Nitrogen) 27 mg/dL (8.4-25.7); Bilirubin, Total 0.7 mg/dL (0.2-1.2); Calc. Creatinine Clearance 0 mL/min (70-130); Calcium 8.8 mg/dL (7.8-10.44); Carbon Dioxide 20 mmol/L (23-31); Chloride 103 mmol/L (98-107); Estimated GFR 41; Globulin 2.7 g/dL (2.4-3.5); Glucose 371 mg/dL (83-110); Potassium 5.1 mmol/L (3.5-5.1); Protein, Total 6.6 g/dL (5.8-8.1); Sodium 132 mmol/L (136-145)
[2022-05-30 23:38] LABS: SARS-CoV-2 NAA Rapid Test Not Detected (NotDetected)
[2022-05-31] MEDS ORDERED: Vancomycin HCl 750 MG VIAL ONE (00:48)
[2022-05-31] MEDS ORDERED: Sodium Chloride 0.9% 500 ML ONE (00:48)
[2022-05-31] MEDS ORDERED: Vancomycin 1 GM VIAL ONE (00:48)
[2022-05-31] MEDS ORDERED: Sodium Chloride 0.9% 1,000 ML ONE ×2 (00:48→02:17)
[2022-05-31 01:27] LABS: Lactic Acid 2.6 mmol/L (0.5-2.2)
[2022-05-31] MEDS ORDERED: Acetaminophen 325 MG TAB ONE ×2 (03:10→17:16)
[2022-05-31] MEDS ORDERED: Lactated Ringer's 1,000 ML ONE (04:21)
[2022-05-31 05:30] LABS: Bilirubin Negative (Negative); Blood, Urine Negative (Negative); Clarity Clear (Clear); Glucose, Urine (Dipstick) 500 mg/dL (Negative); Ketone, Urine 15 mg/dL (Negative); Leukocyte Negative (Negative); Nitrite Negative (Negative); Protein, Urine (Dipstick) Trace mg/dL (Neg-Trace); Urobilinogen 0.2 mg/dL (Less than 2); pH, Urine 5.5 (5.0-9.0)
[2022-05-31] MEDS ORDERED: Sodium Chloride 0.9% 0 ML ONE (06:09)
[2022-05-31] MEDS ORDERED: Cefepime 2 GM VIAL ONE ×2 (06:09→17:14)
[2022-05-31] MEDS ORDERED: Cefepime 1 GM VIAL ONE (06:27)
[2022-05-31] MEDS ORDERED: Sodium Chloride 0.9% 100 ML ONE ×2 (06:28→17:14)
[2022-05-31] MEDS ORDERED: Glimepiride 2 MG TAB PO SCH (10:15)
[2022-05-31] MEDS ORDERED: Aspirin Chewable 81 MG TAB ONE ×2 (10:30→14:54)
[2022-05-31] MEDS ORDERED: Furosemide 40 MG TAB ONE (10:30)
[2022-05-31] MEDS ORDERED: Metoprolol Tartrate 25 MG TAB ONE (10:30)
[2022-05-31] MEDS ORDERED: Insulin Regular 300 UNITS/3 ML VIAL ONE (10:36)
[2022-05-31] MEDS ORDERED: Spironolactone 25 MG TAB PO SCH (10:45)
[2022-05-31] MEDS ORDERED: Atorvastatin Calcium 40 MG TAB PO SCH (10:45)
[2022-05-31] MEDS ORDERED: Pregabalin 75 MG CAP PO SCH (10:45)
[2022-05-31 13:26] LABS: CKMB 2.6 ng/mL (0-6.6)
[2022-05-31 15:36] LABS: PTT 32.7 sec (22.9-36.1)
[2022-05-31] MEDS ORDERED: Heparin 5,000 UNITS/ML VIAL ONE (16:22)
[2022-05-31] MEDS ORDERED: Heparin 25,000 units/D5W 500 ML ONE (16:22)
== END 2022-05-31 19:09 | disposition short-term general hospital (02) ==
LOC: NAV ERS 22:00
DX: I21.4 Non-ST elevation (NSTEMI) myocardial infarction (principal); A41.9 Sepsis, unspecified organism; L03.115 Cellulitis of right lower limb; E11.9 Type 2 diabetes mellitus without complications; D64.9 Anemia, unspecified; N28.9 Disorder of kidney and ureter, unspecified; I10 Essential (primary) hypertension; E78.00 Pure hypercholesterolemia, unspecified; Z79.4 Long term (current) use of insulin; Z79.82 Long term (current) use of aspirin; Z79.84 Long term (current) use of oral hypoglycemic drugs; Z20.822 Contact with and (suspected) exposure to COVID-19
CPT/HCPCS: 0241U; 71045; 80053; 81003; 82553; 82962; 83605; 84484; 85025; 85610; 85730; 87040; 87077; 87086; 87149 ×2; 93005; 36415; 36416; 87186; 96361; 96365; 96366; 96367; 96368; 96375; J0692; J1644; J1815; J2405; J3370; J3490; J7030; J7050; J7120

== ENCOUNTER 2022-08-19 19:32 | Inpatient (IN) | payer OTHER ==
[2022-08-19 20:06] LABS: #Basophils 0.1 thou/uL (0.0-0.2); #Lymphocytes 2.7 thou/uL (1.20-3.40); #Neutrophils 14.4 thou/uL (1.40-6.50); %Basophils 0.5 % (0.0-1.0); %Lymphocytes 14.9 % (21.0-51.0); %Monocytes 5.4 % (0.0-10.0); %Neutrophils 79.2 % (42.0-75.0); Mean Corpuscular HGB CONC 30.9 g/dL (32.0-36.0); Mean Corpuscular Volume 97.2 fl (78.0-98.0); Mean Platelet Volume 7.7 fL (7.4-10.4); Platelet Count 179 10x3/uL (130-400); RBC Distribution Width 14.1 % (11.5-14.5); White Blood Cell (WBC) Count 18.1 10x3/uL (4.8-10.8)
[2022-08-19] MEDS ORDERED: Sodium Chloride 0.9% 1,000 ML ONE (20:10)
[2022-08-19] MEDS ORDERED: Acetaminophen 500 MG TAB ONE (20:10)
[2022-08-19 20:31] LABS: ALT (SGPT) 20 U/L (8-55); AST (SGOT) 19 U/L (5-34); Albumin 4.2 g/dL (3.4-4.8); Alkaline Phosphatase 98 U/L (40-110); Anion Gap 15 mmol/L (10-20); BUN (Urea Nitrogen) 28 mg/dL (8.4-25.7); Bilirubin, Total 0.8 mg/dL (0.2-1.2); CK (CPK) 73 U/L (30-200); Calc. Creatinine Clearance 0 mL/min (70-130); Calcium 8.8 mg/dL (7.8-10.44); Carbon Dioxide 21 mmol/L (23-31); Chloride 105 mmol/L (98-107); Estimated GFR 43; Globulin 2.5 g/dL (2.4-3.5); Glucose 230 mg/dL (83-110); Lipase 13 U/L (8-78); Magnesium 1.5 mg/dL (1.6-2.6); Potassium 5.5 mmol/L (3.5-5.1); Protein, Total 6.7 g/dL (5.8-8.1); Sodium 135 mmol/L (136-145)
[2022-08-19] MEDS ORDERED: Vancomycin 1 GM VIAL ONE (20:49)
[2022-08-19] MEDS ORDERED: Sodium Chloride 0.9% 250 ML 250 ML ONE (20:49)
[2022-08-19 20:56] LABS: SARS-CoV-2 NAA Rapid Test Not Detected (NotDetected)
[2022-08-19] MEDS ORDERED: Magnesium 2 GM/50 ML BAG (IN WATER) ONE ×2 (21:33)
[2022-08-19] MEDS ORDERED: Dextrose 50% Abboject 50 ML SYRINGE SLOW IVP PRN (21:36)
[2022-08-19] MEDS ORDERED: Acetaminophen 325 MG TAB PO PRN (21:42)
[2022-08-19] MEDS ORDERED: Ondansetron ODT 4 MG TAB PO PRN (21:42)
[2022-08-19] MEDS ORDERED: HumaLOG 300 UNITS/3 ML VIAL SC PRN (21:42)
[2022-08-19] MEDS ORDERED: Senokot S 8.6-50 MG TAB PO PRN (21:42)
[2022-08-19 21:59] LABS: Bilirubin Negative (Negative); Blood, Urine Negative (Negative); Clarity Clear (Clear); Glucose, Urine (Dipstick) 250 mg/dL (Negative); Ketone, Urine Trace mg/dL (Negative); Leukocyte Negative (Negative); Nitrite Negative (Negative); Protein, Urine (Dipstick) 30 mg/dL (Neg-Trace); Urobilinogen 0.2 mg/dL (Less than 2)
[2022-08-19 22:01] LABS: Bacteria/HPF None Seen HPF (None Seen); RBC/HPF None Seen HPF (0-3); Squamous Epithelial None Seen HPF (0-3); WBC/HPF None Seen HPF (0-3)
[2022-08-19] MEDS ORDERED: Ibuprofen 800 MG TAB ONE (22:11)
[2022-08-19] MEDS: Lactated Ringer's 1,000 ML IV SCH (23:35)
[2022-08-20 05:41] LABS: #Basophils 0.1 thou/uL (0.0-0.2); #Lymphocytes 2.9 thou/uL (1.20-3.40); #Monocytes 0.5 thou/uL (0.11-0.59); #Neutrophils 11.7 thou/uL (1.40-6.50); %Basophils 0.5 % (0.0-1.0); %Lymphocytes 19.2 % (21.0-51.0); %Monocytes 3.3 % (0.0-10.0); Hemoglobin 10.4 g/dL (14.0-18.0); Mean Corpuscular HGB CONC 31.8 g/dL (32.0-36.0); Mean Corpuscular Hemoglobin 30.9 pg (27.0-31.0); Mean Corpuscular Volume 97.2 fl (78.0-98.0); Mean Platelet Volume 7.4 fL (7.4-10.4); Platelet Count 153 10x3/uL (130-400); RBC Distribution Width 13.9 % (11.5-14.5); Red Blood Cell (RBC) Count 3.36 mill/uL (4.70-6.10); White Blood Cell (WBC) Count 15.2 10x3/uL (4.8-10.8)
[2022-08-20 05:52] LABS: ALT (SGPT) 15 U/L (8-55); AST (SGOT) 13 U/L (5-34); Albumin 3.3 g/dL (3.4-4.8); Alkaline Phosphatase 78 U/L (40-110); Anion Gap 14 mmol/L (10-20); BUN (Urea Nitrogen) 30 mg/dL (8.4-25.7); Bilirubin, Total 0.8 mg/dL (0.2-1.2); Calc. Creatinine Clearance 54 mL/min (70-130); Carbon Dioxide 19 mmol/L (23-31); Chloride 109 mmol/L (98-107); Estimated GFR 41; Globulin 2.5 g/dL (2.4-3.5); Glucose 183 mg/dL (83-110); Potassium 4.7 mmol/L (3.5-5.1); Protein, Total 5.8 g/dL (5.8-8.1); Sodium 137 mmol/L (136-145)
[2022-08-20] MEDS: Lactated Ringer's 1,000 ML IV SCH (05:57)
[2022-08-20] MEDS: HumaLOG 300 UNITS/3 ML VIAL SC PRN ×3 (06:23→17:40)
[2022-08-20] MEDS: Cefepime 2 GM in Sodium Chloride 0.9% 100 ML IVPB SCH ×2 (08:05→21:04)
[2022-08-20] MEDS ORDERED: Famotidine 20 MG TAB PO SCH (09:00)
[2022-08-20] MEDS ORDERED: Spironolactone 25 MG TAB PO SCH (14:45)
[2022-08-20] MEDS ORDERED: Furosemide 40 MG TAB PO SCH (14:45)
[2022-08-20] MEDS: Glimepiride 2 MG TAB PO SCH (17:43)
[2022-08-20] MEDS ORDERED: Vancomycin HCl 1.25 GM in Sodium Chloride 0.9% 250 ML 250 ML IVPB SCH (21:00)
[2022-08-20] MEDS: Atorvastatin Calcium 40 MG TAB PO SCH (21:02)
[2022-08-20] MEDS: Pregabalin 75 MG CAP PO SCH (21:02)
[2022-08-20] MEDS: Aspirin Chewable 81 MG TAB PO SCH (21:04)
[2022-08-20] MEDS ORDERED: Vancomycin HCl 750 MG in Sodium Chloride 0.9% 250 ML 250 ML IVPB SCH (21:30)
[2022-08-20] MEDS ORDERED: Vancomycin HCl 500 MG in Sodium Chloride 0.9% 100 ML IVPB SCH (22:00)
[2022-08-20] MEDS: LISPRO SC SCH (23:18)
[2022-08-20] MEDS: INSULIN LISPRO PROTAMINE SC SCH (23:18)
[2022-08-21 05:48] LABS: #Basophils 0.1 thou/uL (0.0-0.2); #Eosinphils 0.1 thou/uL (0.0-0.7); #Lymphocytes 3.7 thou/uL (1.20-3.40); #Neutrophils 5.7 thou/uL (1.40-6.50); %Basophils 0.6 % (0.0-1.0); %Lymphocytes 35.1 % (21.0-51.0); %Monocytes 9.3 % (0.0-10.0); Hemoglobin 10.6 g/dL (14.0-18.0); Mean Corpuscular HGB CONC 31.4 g/dL (32.0-36.0); Mean Corpuscular Hemoglobin 30.3 pg (27.0-31.0); Mean Corpuscular Volume 96.7 fl (78.0-98.0); Mean Platelet Volume 8.2 fL (7.4-10.4); Platelet Count 164 10x3/uL (130-400); White Blood Cell (WBC) Count 10.6 10x3/uL (4.8-10.8)
[2022-08-21 05:53] LABS: ALT (SGPT) 14 U/L (8-55); AST (SGOT) 14 U/L (5-34); Albumin 3.4 g/dL (3.4-4.8); Alkaline Phosphatase 78 U/L (40-110); Anion Gap 13 mmol/L (10-20); BUN (Urea Nitrogen) 28 mg/dL (8.4-25.7); Bilirubin, Total 0.5 mg/dL (0.2-1.2); Calc. Creatinine Clearance 57 mL/min (70-130); Calcium 8.5 mg/dL (7.8-10.44); Carbon Dioxide 22 mmol/L (23-31); Chloride 107 mmol/L (98-107); Estimated GFR 43; Globulin 2.8 g/dL (2.4-3.5); Glucose 110 mg/dL (83-110); Potassium 4.1 mmol/L (3.5-5.1); Protein, Total 6.2 g/dL (5.8-8.1); Sodium 138 mmol/L (136-145)
[2022-08-21] MEDS: Glimepiride 2 MG TAB PO SCH ×2 (08:08→16:31)
[2022-08-21] MEDS: Cefepime 2 GM in Sodium Chloride 0.9% 100 ML IVPB SCH (08:51)
[2022-08-21] MEDS: Aspirin Chewable 81 MG TAB PO SCH ×2 (09:05→21:36)
[2022-08-21] MEDS: Spironolactone 25 MG TAB PO SCH (09:05)
[2022-08-21] MEDS: Furosemide 40 MG TAB PO SCH (09:05)
[2022-08-21] MEDS: Pregabalin 75 MG CAP PO SCH ×2 (09:06→21:38)
[2022-08-21] MEDS: Metoprolol Tartrate 25 MG TAB PO SCH (09:08)
[2022-08-21] MEDS: [UNRECOGNIZED DRUG - OTHER] SC SCH ×2 (09:09→18:06)
[2022-08-21] MEDS: INSULIN LISPRO PROTAMINE SC SCH ×2 (09:09→22:46)
[2022-08-21] MEDS: DULAGLUTIDE SC SCH ×2 (09:09→18:06)
[2022-08-21] MEDS: LISPRO SC SCH ×2 (09:09→22:46)
[2022-08-21] MEDS: HumaLOG 300 UNITS/3 ML VIAL SC PRN (16:35)
[2022-08-21] MEDS ORDERED: Vancomycin HCl 750 MG in Sodium Chloride 0.9% 250 ML 250 ML IVPB SCH (21:00)
[2022-08-21] MEDS ORDERED: AMOXicillin 250 MG CAP ONE ×2 (21:13)
[2022-08-21] MEDS: Atorvastatin Calcium 40 MG TAB PO SCH (21:36)
[2022-08-21] MEDS: AMOXicillin 500 MG CAP PO SCH (21:36)
[2022-08-21] MEDS: Doxycycline 100 MG CAP PO SCH (21:38)
[2022-08-22] MEDS: HumaLOG 300 UNITS/3 ML VIAL SC PRN ×2 (06:42→11:47)
[2022-08-22] MEDS ORDERED: AMOXicillin 250 MG CAP PO SCH (09:00)
[2022-08-22] MEDS: Pregabalin 75 MG CAP PO SCH (09:02)
[2022-08-22] MEDS: Spironolactone 25 MG TAB PO SCH (09:02)
[2022-08-22] MEDS: Aspirin Chewable 81 MG TAB PO SCH (09:02)
[2022-08-22] MEDS: Metoprolol Tartrate 25 MG TAB PO SCH (09:04)
[2022-08-22] MEDS: Doxycycline 100 MG CAP PO SCH (09:04)
[2022-08-22] MEDS: Furosemide 40 MG TAB PO SCH (09:04)
[2022-08-22] MEDS: Glimepiride 2 MG TAB PO SCH (09:04)
[2022-08-22] MEDS: LISPRO SC SCH (09:05)
[2022-08-22] MEDS: INSULIN LISPRO PROTAMINE SC SCH (09:05)
[2022-08-22] MEDS: AMOXicillin 500 MG CAP PO SCH (10:53)
[2022-08-22 12:10] VITALS: BMI 33.3
[2022-08-22 14:01] VITALS: BP 126/74; TEMP 98.3
== END 2022-08-22 14:27 | disposition home or self-care (01) | DRG 872 ==
LOC: NAV ERS 19:32 → NAV ACUTE 19:33 → UNDOADMIN 22:31 → NAV ACUTE 08-20 10:44
PROVIDERS: ADMIT Family Medicine; ATTEND Family Medicine
DX: A41.9 Sepsis, unspecified organism (principal); L03.115 Cellulitis of right lower limb; N17.9 Acute kidney failure, unspecified; N18.9 Chronic kidney disease, unspecified; E83.42 Hypomagnesemia; Z20.822 Contact with and (suspected) exposure to COVID-19; D63.1 Anemia in chronic kidney disease; E11.22 Type 2 diabetes mellitus with diabetic chronic kidney disease; I12.9 Hypertensive chronic kidney disease with stage 1 through stage 4 chronic kidney disease, or unspecified chronic kidney disease; Z88.2 Allergy status to sulfonamides; Z79.84 Long term (current) use of oral hypoglycemic drugs; Z79.4 Long term (current) use of insulin; Z79.899 Other long term (current) drug therapy; Z79.82 Long term (current) use of aspirin; Z95.1 Presence of aortocoronary bypass graft; Z90.49 Acquired absence of other specified parts of digestive tract; Z90.89 Acquired absence of other organs; Z89.011 Acquired absence of right thumb; F03.90 Unspecified dementia, unspecified severity, without behavioral disturbance, psychotic disturbance, mood disturbance, and anxiety; E78.00 Pure hypercholesterolemia, unspecified
CPT/HCPCS: 36415; 36416; 51701; 71045; 80053; 81003; 81015; 82550; 83605; 83690; 83735; 83880; 84145; 84484; 85025; 87040; 93005; 96361; 96365; 96366; 96367; J0692; J1650; J1815; J3370; J3475; J3490; J7050; J7120